=== PATIENT | female | born 1985 | race Caucasian/White ===

== ENCOUNTER 2017-04-19 04:25 | Inpatient (IN) | payer OTHER ==
[~2017-04-19] VITALS: Ht 167.6 cm; Wt 82.3 kg
[2017-04-30] MEDS ORDERED: OXYTOCIN 30U/ 0.9% NaCL 500ML 500 ML IV ONE (19:45)
[2017-04-30] MEDS ORDERED: NEWBORN KIT ONE (19:49)
[2017-04-30] MEDS ORDERED: MISOPROSTOL 25 MCG TABLET ONE (19:49)
[2017-04-30] MEDS ORDERED: OXYTOCIN 30U/ 0.9% NaCL 500ML 500 ML ONE (19:49)
[2017-04-30] MEDS ORDERED: MISOPROSTOL 200 MCG TABLET ONE (19:49)
[2017-04-30] MEDS ORDERED: LIDOCAINE 1%, 20ML ONE (19:49)
[2017-04-30] MEDS ORDERED: FENTANYL PF 100 MCG/2ML IV PRN (20:00)
[2017-04-30] MEDS ORDERED: METOCLOPRAMIDE 5 MG/ML, 2ML IVPush PRN (20:00)
[2017-04-30] MEDS ORDERED: MISOPROSTOL 25 MCG TABLET VG PRN (20:00)
[2017-04-30] MEDS ORDERED: FENTANYL PF 100 MCG/2ML IVPush PRN (20:00)
[2017-04-30] MEDS ORDERED: ONDANSETRON 2MG/ML, 2ML IVPush PRN (20:00)
[2017-04-30] MEDS ORDERED: CALCIUM CARBONATE 500 MG TAB.CHEW PO PRN (20:00)
[2017-04-30] MEDS: LACTATED RINGERS 1,000 ML IV SCH ×2 (20:00→23:54)
[2017-04-30 20:19] LABS: HEMATOCRIT 39.5 % (34.6-47.8); HEMOGLOBIN 13.3 g/dL (11.7-16.4); WHITE BLOOD COUNT 11.8 x10^3/uL (3.4-10)
[2017-04-30 20:30] VITALS: BP 130/71
[2017-04-30] MEDS ORDERED: TERBUTALINE 1 MG/ML, 1ML ONE (22:35)
[2017-04-30] MEDS ORDERED: OXYTOCIN 30U/ 0.9% NaCL 500ML 500 ML IV PRN (22:39)
[2017-05-01] MEDS ORDERED: TERBUTALINE 1 MG/ML, 1ML SQ PRN
[2017-05-01] MEDS: D5%-LACTATED RINGERS 1,000 ML IV SCH ×3 (03:45→19:45)
[2017-05-01] MEDS ORDERED: MISOPROSTOL 200 MCG TABLET ONE (13:20)
[2017-05-01] MEDS: SODIUM CHLORIDE FLUSH 10ML SYR IVF SCH (21:06)
[2017-05-02] MEDS: D5%-LACTATED RINGERS 1,000 ML IV SCH ×4 (03:45→19:45)
[2017-05-02] MEDS: LACTATED RINGERS 1,000 ML IV SCH ×8 (04:39→22:46)
[2017-05-02] MEDS ORDERED: FENTANYL/BUPIV./NS/PF 250 ML EPIDCONT SCH (10:23)
[2017-05-02] MEDS ORDERED: BUPIVACAINE/PF 0.25% ONE (10:25)
[2017-05-02] MEDS ORDERED: FENTANYL/BUPIV./NS/PF 250 ML EPIDCONT ONE (10:25)
[2017-05-02] MEDS ORDERED: NALOXONE 0.4 MG/ML, 1ML IVPush PRN (10:30)
[2017-05-02] MEDS ORDERED: LACTATED RINGERS 1,000 ML IVBOLUS PRN (10:30)
[2017-05-02] MEDS ORDERED: EPHEDRINE 50 MG/ML, 1ML IVPush PRN ×2 (10:30→21:00)
[2017-05-02] MEDS ORDERED: ONDANSETRON 2MG/ML, 2ML ONE ×2 (12:12→21:09)
[2017-05-02] MEDS ORDERED: TERBUTALINE 1 MG/ML, 1ML ONE (12:32)
[2017-05-02] MEDS ORDERED: LACTATED RINGERS 1,000 ML INTUTE SCH (18:00)
[2017-05-02] MEDS ORDERED: LACTATED RINGERS 1,000 ML INTUTE PRN (18:00)
[2017-05-02] MEDS ORDERED: METOCLOPRAMIDE 5 MG/ML, 2ML ONE (19:31)
[2017-05-02] MEDS ORDERED: SODIUM CITRATE/CITRIC ACID 30 ML UDC ONE (19:31)
[2017-05-02] MEDS ORDERED: LACTATED RINGERS 1,000 ML IV SCH ×4 (20:35→22:00)
[2017-05-02] MEDS ORDERED: OXYTOCIN 30U/ 0.9% NaCL 500ML 500 ML IV SCH (20:40)
[2017-05-02] MEDS ORDERED: LACTATED RINGERS 1,000 ML IVBOLUS ONE (21:00)
[2017-05-02] MEDS ORDERED: hydrALAzine 20 MG/ML, 1ML IV PRN (21:00)
[2017-05-02] MEDS ORDERED: MEPERIDINE/PF 25MG/0.5ML IVPush PRN (21:00)
[2017-05-02] MEDS ORDERED: OXYcodone 5 MG/5 ML ORAL.SOL UDC PO PRN (21:00)
[2017-05-02] MEDS ORDERED: ALBUTEROL SULFATE 2.5 MG/3 ML NPPB PRN (21:00)
[2017-05-02] MEDS ORDERED: HYDROcodone/APAP 7.5-325MG/15ML UDC PO PRN (21:00)
[2017-05-02] MEDS ORDERED: LABETALOL 5MG/ML, 20ML IV PRN (21:00)
[2017-05-02] MEDS ORDERED: PROMETHAZINE 25 MG/ML, 1ML IV PRN (21:00)
[2017-05-02] MEDS ORDERED: SODIUM CITRATE/CITRIC ACID 30 ML UDC PO ONE (21:00)
[2017-05-02] MEDS ORDERED: ONDANSETRON 2MG/ML, 2ML IVPush PRN (21:00)
[2017-05-02] MEDS ORDERED: EPHEDRINE 50 MG/ML, 1ML ONE (21:09)
[2017-05-02] MEDS ORDERED: SUCCINYLCHOLINE 20 MG/ML, 10ML ONE (21:09)
[2017-05-02] MEDS ORDERED: DEXAMETHASONE 4 MG/ML, 1ML ONE (21:09)
[2017-05-02] MEDS ORDERED: KETOROLAC 30 MG/1 ML ONE (21:09)
[2017-05-02] MEDS ORDERED: CEFAZOLIN 1,000 MG ONE (21:09)
[2017-05-02] MEDS ORDERED: PROPOFOL 10 MG/ML, 20ML ONE (21:09)
[2017-05-02] MEDS ORDERED: FENTANYL PF 100 MCG/2ML ONE ×3 (21:09→23:00)
[2017-05-02] MEDS ORDERED: PHENYLEPHRINE 10 MG/ML ONE (21:09)
[2017-05-02] MEDS ORDERED: OXYTOCIN 10 UNITS/ML, 1ML ONE (21:09)
[2017-05-02] MEDS ORDERED: METHYLERGONOVINE 0.2 MG/ML IM PRN (21:30)
[2017-05-02] MEDS ORDERED: ONDANSETRON 2MG/ML, 2ML IV PRN (21:30)
[2017-05-02] MEDS ORDERED: MISOPROSTOL 200 MCG TABLET PR PRN (21:30)
[2017-05-02] MEDS ORDERED: ACETAMINOPHEN 325 MG TABLET PO PRN (21:30)
[2017-05-02] MEDS ORDERED: morphine SULFATE 10 MG/ML, 1ML IVPush PRN (21:30)
[2017-05-02] MEDS ORDERED: DIPH,PERTUSS(ACELL),TET VAC/PF NC IM-VACC PRN (21:30)
[2017-05-02] MEDS: OXYTOCIN 30U/ 0.9% NaCL 500ML 500 ML IV SCH (22:47)
[2017-05-02] MEDS ORDERED: HYDROmorphone 1 MG/ML, 1ML ONE (23:01)
[2017-05-02] MEDS: FENTANYL PF 100 MCG/2ML IV PRN ×2 (23:05→23:58)
[2017-05-03] MEDS ORDERED: HYDROmorphone 1 MG/ML, 1ML ONE (00:23)
[2017-05-03] MEDS: HYDROmorphone 1 MG/ML, 1ML IV PRN ×3 (00:26→00:47)
[2017-05-03 01:16] VITALS: BP 113/80
[2017-05-03] MEDS: OXYcodone/APAP 5/325MG TABLET PO PRN ×6 (01:41→22:42)
[2017-05-03 02:00] VITALS: BP 116/67
[2017-05-03] MEDS: LACTATED RINGERS 1,000 ML IV SCH ×4 (02:30→17:17)
[2017-05-03 03:47] VITALS: BP 114/63
[2017-05-03] MEDS: KETOROLAC 30 MG/1 ML IV SCH ×4 (04:29→22:30)
[2017-05-03 05:52] LABS: HEMATOCRIT 39.9 % (34.6-47.8); HEMOGLOBIN 13.2 g/dL (11.7-16.4); WHITE BLOOD COUNT 22.9 x10^3/uL (3.4-10)
[2017-05-03 07:12] VITALS: BP 117/72
[2017-05-03] MEDS: OXYTOCIN 30U/ 0.9% NaCL 500ML 500 ML IV SCH ×2 (07:17→17:17)
[2017-05-03] MEDS ORDERED: PRENATAL VIT/IRON/FA 1 EACH TABLET ONE (07:23)
[2017-05-03] MEDS: PRENATAL VIT/IRON/FA 1 EACH TABLET PO SCH (07:25)
[2017-05-03] MEDS: DOCUSATE 100 MG CAPSULE PO PRN ×2 (07:25→22:42)
[2017-05-03] MEDS: SODIUM CHLORIDE FLUSH 10ML SYR IVF SCH ×2 (07:38→21:00)
[2017-05-03 12:21] VITALS: BP 111/72
[2017-05-03 20:00] VITALS: BP 104/59
[2017-05-03] MEDS: IBUPROFEN 600 MG TABLET PO PRN (22:42)
[2017-05-04] MEDS: OXYcodone/APAP 5/325MG TABLET PO PRN ×4 (04:18→13:49)
[2017-05-04] MEDS: IBUPROFEN 600 MG TABLET PO PRN ×3 (05:01→17:56)
[2017-05-04 08:02] VITALS: BP 113/60
[2017-05-04] MEDS: DOCUSATE 100 MG CAPSULE PO PRN ×2 (08:32→22:05)
[2017-05-04] MEDS: PRENATAL VIT/IRON/FA 1 EACH TABLET PO SCH (08:32)
[2017-05-04] MEDS: OXYcodone/APAP 10/325MG TABLET PO PRN ×2 (17:56→22:05)
[2017-05-04 21:00] VITALS: BP 104/59
[2017-05-05] MEDS: IBUPROFEN 600 MG TABLET PO PRN ×3 (00:12→12:36)
[2017-05-05] MEDS: OXYcodone/APAP 10/325MG TABLET PO PRN ×4 (02:51→15:43)
[2017-05-05 06:35] VITALS: BP 112/74
[2017-05-05] MEDS: PRENATAL VIT/IRON/FA 1 EACH TABLET PO SCH (07:27)
[2017-05-05] MEDS: DOCUSATE 100 MG CAPSULE PO PRN (07:28)
[2017-05-05] MEDS ORDERED: OXYC-302 PO (11:41)
[2017-05-05] MEDS ORDERED: IBUP-1222 PO (11:42)
== END 2017-05-05 15:40 | disposition home or self-care (01) | DRG 766 ==
LOC: LDIP 04-30 19:42 → 2NW 05-03 01:05
PROVIDERS: ADMIT Obstetrics & Gynecology Maternal & Fetal Medicine; ATTEND Obstetrics & Gynecology Maternal & Fetal Medicine
PROC: 10D00Z1 Extraction of Products of Conception, Low, Open Approach (ICD-10-PCS; principal; 2017-05-02)
DX: O48.0 Post-term pregnancy (principal); J45.909 Unspecified asthma, uncomplicated; O99.52 Diseases of the respiratory system complicating childbirth; O62.0 Primary inadequate contractions; O62.1 Secondary uterine inertia; Z37.0 Single live birth; Z3A.41 41 weeks gestation of pregnancy
CPT/HCPCS: 36415; 85025; 86850; 86900; 90715; J0690; J1100; J1170; J1885; J2405; J2704; J3010; J0330; J2370; J2590; J2765; J3105; J7120; J7121

== ENCOUNTER 2019-10-21 14:40 | Outpatient (CLI) | payer OTHER ==
[~2019-10-21 14:40] MED LIST: HYDR-3240 PO; IBUP-1222 PO; IBUP200T49 PO; OXYC-302 PO
== END 2019-10-21 23:59 | disposition home or self-care (01) ==
LOC: RAD 14:40
PROVIDERS: ATTEND Nurse Practitioner Family
DX: M54.5 Low back pain (principal)
CPT/HCPCS: 76770